=== PATIENT | female | born 1985 | race Caucasian/White ===

== ENCOUNTER 2018-09-24 06:44 | Emergency (ER) | payer MEDICAID ==
[~2018-09-24] VITALS: Ht 162.6 cm; Wt 63.5 kg
--- NOTE | 2018-09-24 06:45 | NUR ---
ED Nurse Note: recieved pt biba from home with c/o pain to left arm which pt states is resolved, pt thinks she had muscle spasm in arm, pt has history of anxiety and does appear anxious and restless, pt can not sit still, pt denies cp or having arm pain now, pt is actually asking to go home, md at bedside, tp to have ekg done and prepare for d/c to home.
[2018-09-24] MEDS ORDERED: TYLENOL EXTRA500 MG ORAL (07:53)
[2018-09-24 07:59] VITALS: BP 115/89
[2018-09-24 08:00] VITALS: BP 115/90
--- NOTE | 2018-09-24 08:01 | NUR ---
ED Nurse Note: Pt cleared by health care Provider for discharge. DC instructions/prescription was given and explained to pt and verbalized understanding of teachings. All medical deviecs such as ID band removed. Pt is AAO x4, ambulatory and left with all personal belongings. Pt stated she would be going home
--- NOTE | 2018-09-24 09:46 | Emergency Room Report ---
History of Present Illness General Chief Complaint: General Complaint Source: Patient Present Illness HPI 32-year-old female presents ED for evaluation. Brought in by EMS from street complaining of generalized body pain starting this morning. Patient states that she has pain all over her body including her chest and left arm. Woke up with this pain. Dull, 7 out of 10, nonradiating. Denies shortness of breath. Denies smoking or drug use. States she does have history of anxiety and used to take Klonopin but does not take medication at this time. Denies SI or HI. Denies hearing voices. No other aggravating relieving factors. Denies any other associated symptoms Allergies: Coded Allergies: No Known Allergies (Unverified , 09/24/18) Patient History Past Medical History: psych hx Past Surgical History: none Pertinent Family History: none Social History: Denies: smoking, alcohol use, drug use Now: No Immunizations: UTD Reviewed Nursing Documentation: PMH: Agreed; PSxH: Agreed Nursing Documentation-PMH Past Medical History: No Stated History Review of Systems All Other Systems: negative except mentioned in HPI Physical Exam Vital Signs Date Time Temp Pulse Resp B/P (MAP) Pulse Ox O2 Delivery O2 Flow Rate FiO2 09/24/18 06:30 98.2 100 22 117/90 100 Room Air Sp02 EP Interpretation: reviewed, normal General Appearance: no apparent distress, alert, GCS 15, non-toxic Head: normocephalic, atraumatic Eyes: bilateral eye normal inspection, bilateral eye PERRL ENT: hearing grossly normal, normal pharynx, no angioedema, normal voice Neck: full range of motion, supple/symm/no masses Respiratory: chest non-tender, lungs clear, normal breath sounds, speaking full sentences Cardiovascular #1: regular rate, rhythm, no edema Cardiovascular #2: 2+ carotid (R), 2+ carotid (L), 2+ radial (R), 2+ radial (L) , 2+ dorsalis pedis (R), 2+ dorsalis pedis (L) Gastrointestinal: normal bowel sounds, non tender, soft, non-distended, no guarding, no rebound Rectal: deferred Genitourinary: normal inspection, no CVA tenderness Musculoskeletal: back normal, gait/station normal, normal range of motion, non- tender Neurologic: alert, oriented x3, responsive, motor strength/tone normal, sensory intact, speech normal Psychiatric: judgement/insight normal, memory normal, mood/affect normal, no suicidal/homicidal ideation Reflexes: 3+ bicep (R), 3+ bicep (L), 3+ tricep (R), 3+ tricep (L), 3+ knee (R) , 3+ knee (L) Skin: normal color, no rash, warm/dry, well hydrated Lymphatic: no adenopathy Medical Decision Making Diagnostic Impression: Primary Impression: Chest wall pain Additional Impression: Anxiety ER Course Hospital Course 32 yo F presents with generalized pain, feeling anxious Differential diagnoses include: TX/unstable angina, psychosis, anxiety Clinical course 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 After initial history, physical exam reveals a young female in no acute distress. Patient appears very restless, constantly moving. Maintains good eye contact. Answering questions appropriately. No evidence of delusions. No SI or HI. Remainder physical exam unremarkable I ordered EKG EKGnormal sinus rhythm no acute ischemic changes interpreted by me Vitals otherwise stable. No cardiac risk factors. i believe symptoms are more likely anxiety related. Safe for discharge or close outpatient follow-up Patient found on the streets. However states she does have a place to live. States she will arrange transportation home. She does not have a PMD or psychiatrist. I will provide referral. Safe for discharge close outpatient follow-up I. I feel this is a highly complex case requiring extensive working including EKG/Rhythm strip, Xray/CT/US, Blood/urine lab work, repeat exams while in ED, and administration of strong opiates/narcotics for pain control, admission to hospital or close patient follow up. Diagnosis - anxiety, chest wall pain Stable and discharged to home. Followup with PMD/psych. Return to ED if symptoms recur or worse EKG Diagnostic Results Rate: normal Rhythm: NSR ST Segments: no acute changes ASA given to the pt in ED: No Rhythm Strip Diag. Results EP Interpretation: yes Rhythm: NSR, no PVC's, no ectopy Last Vital Signs Date Time Temp Pulse Resp B/P (MAP) Pulse Ox O2 Delivery O2 Flow Rate FiO2 09/24/18 08:00 98.2 75 22 115/90 100 Room Air Status: improved Disposition: HOME, SELF-CARE Condition: Stable Scripts Acetaminophen* (TYLENOL EXTRA STRENGTH*) 500 Mg Tablet 500 MG ORAL Q8H PRN for Prn Headache/Temp > 101, #30 TAB 0 Refills Prov: Jett Brady MD 09/24/18 Referrals: NOT CHOSEN IPA/,REFERRING [facility]. Patient Instructions: Panic Attacks, [id number], Chest Wall Pain, Easy-to- Read Jett Brady MD Sep 24, 2018 09:46
--- NOTE | 2018-09-24 12:25 | Cardiology Report ---
APPROVED REPORT EKG Measurement Heart [id number] MD [id number] Sinus tachycardia Otherwise normal ECG
== END 2018-09-24 07:55 | disposition home or self-care (01) ==
LOC: EDBD 06:44 → EMR 07:20
DX: R07.89 Other chest pain (principal); F41.9 Anxiety disorder, unspecified
CPT/HCPCS: 93005; 99283